=== PATIENT | female | born 1995 | race Caucasian/White ===

== ENCOUNTER 2016-09-15 21:34 | Emergency (ER) | payer BC, OTHER ==
[~2016-09-15] VITALS: Ht 154.9 cm; Wt 46.9 kg
[2016-09-15 21:36] VITALS: TEMP 37; Ht 154.9 cm; Wt 46.9 kg
[2016-09-15] MEDS ORDERED: AMOX500C3 PO (22:05)
[2016-09-15] MEDS ORDERED: HYDR-5688 PO (22:05)
[2016-09-15] MEDS ORDERED: NORCO 5/325MG HOME PACK PO ONE (22:15)
[2016-09-15] MEDS ORDERED: BACITRACIN OINT 15 GM TUBE EXT ONE (22:15)
[2016-09-15] MEDS ORDERED: DIPHTHERIA/TETANUS/PERTUSSIS 0.5 ML SYR/VIAL IM. ONE (22:15)
[2016-09-15] MEDS ORDERED: AMOXICILLIN HOME PACK 250 MG/TAB PO ONE (22:15)
[2016-09-15 22:30] VITALS: BP 122/78; PULSE 77; O2SAT 100
--- NOTE | 2016-09-19 18:29 | EMERGENCY ROOM VISIT NOTE ---
History First contact with patient: 21:51 Chief Complaint: BURN (MINOR) Stated Complaint: BURNT HAND History of Present Illness The patient is a 21 year old female who presents to the Emergency Room with complaints of burn injury to her left hand that occurred about one hour ago . The patient is employed at [employer], and states that she was pulling garlic bread out of the oven. Evidently there is butter on top of the bread, and when she took the bread out, the butter splashed off the bread onto the top of her hand. The patient was able to close her hand and put ice on it. She has notable pain, which she rates a 6/10. She is not taking any medication for her symptoms. She is unsure of her tetanus. Review of Systems More than 10 systems were reviewed and otherwise negative with the exception of history of present illness. Past Medical/Surgical History No chronic medical disease Family History No pertinent family history Social History Smoking Status: Never Smoker Occupation Status: employed Current/Historical Medications Scheduled Amoxicillin (Amoxil), 500 MG PO TID Scheduled PRN Hydrocodone/Acetaminophen 5MG/325MG (Ravenel 5MG/325MG), 1 TABLET PO Q6 PRN for Pain Allergies Coded Allergies: Cefprozil (Verified Allergy, Intermediate, Hives, 09/15/16) Physical Exam Vital Signs Date Time Temp Pulse Resp B/P Pulse Ox O2 Delivery O2 Flow Rate FiO2 09/15/16 22:30 77 18 122/78 100 09/15/16 21:36 37.0 84 18 112/60 98 Room Air Pain Rating (0-10): 0 Physical Exam VITALS: Vitals are noted on the nurse's note and reviewed by myself. Vital signs stable. GENERAL: Well-developed, well-nourished, white female who appears in moderate discomfort secondary to her presenting complaint. Patient is cooperative with the examination. HEART: Regular rate and rhythm without murmurs gallops or rubs. LUNGS: Clear to auscultation bilaterally without wheezes, rales or rhonchi. No retractions or accessory muscle use. NEURO: Patient was alert and oriented to person place and time. CN II through XII grossly intact. SKIN: The skin was with a first-degree burn to the dorsal aspect of the left hand measuring approximately 6 x 4 cm in dimension. The wound is not circumferential. There is no blistering or significant sloughing of the skin. The patient is able to open and close the hand without difficulty. Medical Decision & Procedures Medications Administered Medications (Trade) Dose Ordered Sig/Corinna Route Start Time Stop Time Status Last Admin Dose Admin Amoxicillin (Amoxil 250MG Home Pack) 1 homepack UD ONCE PO 09/15/16 22:15 09/15/16 22:16 DC 09/15/16 22:25 1 HOMEPACK Diphtheria/ Pertussis/Tetanus Vacc (Adacel Inj) 0.5 ml ONCE ONCE IM. 09/15/16 22:15 09/15/16 22:16 DC 09/15/16 22:26 0.5 ML Acetaminophen/ Hydrocodone Bitart (Ravenel 5/325mg Home Pack) 1 homepack UD ONCE PO 09/15/16 22:15 09/15/16 22:16 DC 09/15/16 22:25 1 HOMEPACK Bacitracin (Bacitracin Oint) 1 appln NOW ONCE EXT 09/15/16 22:15 09/15/16 22:16 DC 09/15/16 22:25 1 APPLN ED Course Physical exam and history were performed. Nursing notes and EMR were reviewed. Patient appears to have suffered a burn injury to her left hand. She is unsure of her tetanus, and this was updated at this visit. The patient wound was cleansed and dressed with a bacitracin dressing. She'll be started on a course of amoxicillin. The patient will be given a short course of pain medication. Overall the patient appears stable for discharge home, however she will need a recheck in about 2-3 days. I recommended that she follow with Workmen's Compensation or back in the ER to make this occur. The patient was otherwise invited back to the ER with any new or worsening symptoms. She was pleased with this plan and voiced understanding. She rated her discomfort a 2/10 at the time of departure. The chart was completed utilizing [employer] Voice Recognition Software. Grammatical errors, random word insertions, pronoun errors, and incomplete sentences are an occasional consequence of this system due to software limitations, ambient noise, and hardware issues. Any formal questions or concerns about the content, text, or information contained within the body of this dictation should be directly addressed to the provider for clarification. . Medical Decision Differential diagnosis includes, but is not limited to: Burn injury, cellulitis , abscess, and others Impression Primary Impression: Burn injury Departure Information Dispostion Home / Self-Care Condition GOOD Prescriptions Hydrocodone/Acetaminophen 5MG/325MG (Ravenel 5MG/325MG) Tab 1 TABLET PO Q6 Y for Pain, #12 TAB For Initial Treatment Prov: James Ferro PA-C 09/15/16 Amoxicillin (AMOXIL) 500 Mg Cap 500 MG PO TID for 7 Days, #21 CAP Prov: James Ferro PA-C 09/15/16 Referrals No Doctor, Assigned (PCP) Forms HOME CARE DOCUMENTATION FORM, IMPORTANT VISIT INFORMATION Patient Instructions My [facility] Additional Instructions You were seen and evaluated today on an emergency basis only. This is not a substitute for, or an effort to provide, complete comprehensive medical care. It is not possible to recognize and treat all injuries or illnesses in a single emergency department visit. For this reason it is recommended that you followup with your Workmen's Compensation provider or back in the emergency department in 2-3 days for recheck of your injury. Apply a bacitracin and gauze dressing to 3 times daily. For baseline pain relief you may alternate ibuprofen and acetaminophen every 4 hours for pain control. Take 600 mg ibuprofen (Advil) and then 4 hours later take 1000 mg acetaminophen (Tylenol). Do not take more than 3000 mg acetaminophen in a single day. Ravenel (hydrocodone/acetaminophen) 5/325 mg every 6 hours as needed for worsening breakthrough pain. Do not drink or drive on Ravenel. This medication will likely make you tired. Do not take Ravenel and Tylenol at the same time as both contain acetaminophen. Ravenel may cause constipation. You may wish to take an [id number] stool softener like Colace if this occurs. Take amoxicillin 500 mg 3 times daily to help prevent infection to the hand. You are welcome to return to the emergency department anytime with new, worsening, or concerning symptoms.
== END 2016-09-15 22:31 | disposition home or self-care (01) ==
LOC: C.EDB 21:35 → C.EDD 22:31
DX: T23.102A Burn of first degree of left hand, unspecified site, initial encounter (principal); X10.1XXA Contact with hot food, initial encounter; Y99.0 Civilian activity done for income or pay; Z23 Encounter for immunization